=== PATIENT | male | born 1960 | race African-American/Black ===

== ENCOUNTER 2017-01-09 15:30 | Inpatient (IN) | payer OTHER ==
[2017-01-09 18:09] VITALS: BMI 25.7
--- NOTE | 2017-01-09 20:36 | HP ---
Admission ROS [facility] - [facility] Chief Complaint: SEEKING RETIREMENT REHAB SERVICES Allergies/Adverse Reactions: Allergies Allergy/AdvReac Type Severity Reaction Status Date / Time No Known Allergies Allergy Verified 01/09/17 20:04 History of Present Illness: 56 Y.O. MALE WITH EXTENSIVE H/ OF ALCOHOLISM AND CRACK COCAINE DEP SENT FROM [facility] FOR REHAB TXMENT. THIS IS CLIENTS FIRST VISIT HERE. REPORTS LONGEST CLEAN TIME 6.5 MONTHS. Exam Limitations: No Limitations - Ebola screening Have you traveled outside of the country in the last 21 days: No Have you had contact with anyone from an Ebola affected area: No Have you been sick,other than usual withdrawal symptoms: No Do you have a fever: No - Review of Systems Constitutional: Unintentional Wgt. Loss EENT: reports: No Symptoms Reported, Dental Problems (MISSING TEETH) Respiratory: reports: No Symptoms reported Cardiac: reports: No Symptoms Reported GI: reports: No Symptoms Reported : reports: No Symptoms Reported Musculoskeletal: reports: No Symptoms Reported Integumentary: reports: No Symptoms Reported Neuro: reports: No Symptoms reported Endocrine: reports: No Symptoms Reported Hematology: reports: No Symptoms Reported Psychiatric: reports: Anxious, Depressed Other Systems: Reviewed and Negative Patient History - Patient Medical History Hx Hypertension: Yes (ON MEDS) Hx Hypercholesterolemia: Yes (ON MEDS) Hx Pacemaker: No HX Cerebrovascular Accident: No Hx Seizures: No Hx Dementia: No Hx Diabetes: No Hx Gastrointestinal Disorders: No Hx Liver Disease: No Hx Genitourinary Disorders: No Hx Sexually Transmitted Disorders: No Hx Renal Disease (ESRD): No Hx Thyroid Disease: No Hx Human Immunodeficiency Virus (HIV): No Hx Hepatitis C: No Hx Depression: No Hx Suicide Attempt: No Hx Bipolar Disorder: No Hx Schizophrenia: No - Patient Surgical History Past Surgical History: No - PPD History Previous Implant?: Yes Documented Results: Negative w/proof Implanted On Prior [facility] Admission?: No Date: 09/01/16 ([facility] DOCUMENTATION PROVIDED) Results: 0MM PPD to be Administered?: No - Smoking Cessation Smoking history: Current every day smoker Have you smoked in the past 12 months: Yes Aproximately how many cigarettes per day: 10 Cigars Per Day: 0 Hx Chewing Tobacco Use: No Initiated information on smoking cessation: Yes 'Breaking Loose' booklet given: 01/09/17 - Substance & Tx. History Hx Alcohol Use: Yes Hx Substance Use: Yes Substance Use Type: Alcohol, Cocaine Hx Substance Use Treatment: Yes ([facility]) - Substances Abused BEER/LIQUOR Route: Oral Frequency: Daily Amount used: 5 CANS/ 1 PINT Age of first use: 18 Date of Last Use: 01/02/17 COCAINE Route: Smoking Frequency: Daily Amount used: 6 VIALS Age of first use: 36 Date of Last Use: 11/11/14 Family Disease History - Family Disease History Family Disease History: Other: Mother (ALCOHOL), Sister (ALCOHOL) Admission Physical Exam [facility] - Vital Signs Vital Signs: Vital Signs - 24 hr 01/09/17 18:08 Temperature 97.7 F Pulse Rate 59 L Respiratory 18 Rate Blood Pressure 135/74 - Physical General Appearance: Yes: No Apparent Distress HEENTM: Yes: EOMI, Normocephalic, Normal Voice, DENISSE, Pharynx Normal, Microcephalic Respiratory: Yes: Chest Non-Tender, Normal Breath Sounds, No Respiratory Distress, No Accessory Muscle Use Neck: Yes: No masses,lesions,Nodules, Supple, Trachea in good position Breast: Yes: Breast Exam Deferred Cardiology: Yes: Regular Rhythm, Regular Rate, S1, S2 Abdominal: Yes: Normal Bowel Sounds, Non Tender, Soft Genitourinary: Yes: Within Normal Limits Back: Yes: Normal Inspection Musculoskeletal: Yes: full range of Motion, Gait Steady Extremities: Yes: Normal Capillary Refill, Normal Range of Motion, Non-Tender Neurological: Yes: Alert, Other (POOR HISTORIAN) Integumentary: Yes: Normal Color, Dry, Warm Lymphatic: Yes: Within Normal Limits - Diagnostic (1) Alcohol dependence with uncomplicated withdrawal Current Visit: Yes Status: Chronic (2) Cocaine dependence, uncomplicated Current Visit: Yes Status: Chronic (3) Nicotine dependence Current Visit: Yes Status: Chronic Qualifiers: Nicotine product type: cigarettes Substance use status: uncomplicated Qualified Code(s): F17.210 - Nicotine dependence, cigarettes, uncomplicated (4) HTN (hypertension) Current Visit: Yes Status: Chronic Qualifiers: Hypertension type: essential hypertension Qualified Code(s): I10 - Essential (primary) hypertension (5) HLD (hyperlipidemia) Current Visit: Yes Status: Chronic Qualifiers: Hyperlipidemia type: unspecified Qualified Code(s): E78.5 - Hyperlipidemia, unspecified Cleared for Admission [facility] - Detox or Rehab Detox Regimen/Protocol: Not Applicable Claeared for Rehab Admission: Yes [facility] Breath Alcohol Content Breath Alcohol Content: 0 Urine Drug Screen - Results Drug Screen Negative: Yes
[2017-01-09] MEDS ORDERED: P-EPHED 60MG/TRIPROLIDI 2.5MG TABLET PO PRN (20:47)
[2017-01-09] MEDS ORDERED: ACETAMINOPHEN 325 MG TABLET (FP) PO PRN (20:47)
[2017-01-09] MEDS ORDERED: MAGNESIUM HYDROX 2400MG/30ML ORAL SUSPENSION 30 ML CUP PO PRN (20:47)
[2017-01-09] MEDS ORDERED: MAGNESIUM CITRATE 300 ML BOTTLE PO PRN (20:47)
[2017-01-09] MEDS ORDERED: LOPERAMIDE HCL 2 MG CAPSULE PO PRN (20:47)
[2017-01-09] MEDS ORDERED: MAG HYDROX/AL HYDROX/SIMETH 30 ML UNIT-DOSE CUP PO PRN (20:47)
[2017-01-09] MEDS ORDERED: MENTHOL/PHENOL 1 EACH UD MM PRN (20:47)
[2017-01-09] MEDS ORDERED: guaiFENesin/D-METHORPHAN HB 10 ML UNIT-DOSE CUPS PO PRN (20:47)
[2017-01-09] MEDS ORDERED: PATIENT'S OWN MEDICATION (NON-FORMULARY) (Simvastatin 40 MG) PO SCH (22:00)
[2017-01-09] MEDS: NICOTINE 14 MG/24 HOURS TOPICAL PATCH TD SCH (23:11)
[2017-01-09] MEDS: ATORVASTATIN CA 20 MG TABLET (FP) PO SCH (23:12)
[2017-01-09] MEDS: LISINOPRIL 10 MG TABLET (FP) PO SCH (23:12)
[2017-01-09] MEDS: THIAMINE HCL 100 MG TABLET (FP) PO SCH (23:12)
[2017-01-10] MEDS: PRENATAL VITAMINS W/ FOLIC ACID TABLET (FP) PO SCH (09:55)
[2017-01-10] MEDS: NICOTINE 14 MG/24 HOURS TOPICAL PATCH TD SCH (09:55)
[2017-01-10] MEDS: LISINOPRIL 10 MG TABLET (FP) PO SCH (09:55)
[2017-01-10 10:18] LABS: MCH 28.9 pg (25.7-33.7); MCHC 32.7 g/dl (32.0-35.9); MEAN CELL VOLUME 88.3 fl (80-96); MEAN PLT VOLUME 7.7 fl (7.5-11.1); PLATELET COUNT 220 K/MM3 (134-434); RDW 13.6 % (11.9-15.9); WHITE BLOOD COUNT 5.9 K/mm3 (4.0-10.0)
[2017-01-10 10:46] LABS: ALBUMIN 3.6 g/dl (3.4-5.0); ALK PHOS 102 U/L (45-117); ANION GAP 7 (8-16); BILIRUBIN,TOTAL 0.3 mg/dL (0.2-1.0); CALCIUM 8.8 mg/dL (8.5-10.1); CO2 29 mmol/L (21-32); GLUCOSE,RANDOM 67 mg/dL (74-106); SGOT/AST 18 U/L (15-37); SGPT/ALT 28 U/L (12-78); TOT PROT 6.8 g/dl (6.4-8.2)
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
[2017-01-10 10:57] LABS: HIV 1 & 2 AB NEGATIVE; HIV 1 AGp24 NEGATIVE
--- NOTE | 2017-01-10 12:34 | EKG ---
Test Reason : Blood Pressure : / mmHG Vent. Rate : 044 BPM Atrial Rate : 044 BPM P-R Int : 142 ms QRS Dur : 090 ms QT Int : 440 ms P-R-T Axes : 044 -17 031 degrees QTc Int : 376 ms MARKED SINUS BRADYCARDIA ANTERIOR INFARCT , AGE UNDETERMINED ABNORMAL ECG NO PREVIOUS ECGS AVAILABLE Confirmed by RACHEAL RANDOLPH MD ([id number]) on 01/10/2017 12:33:26 PM Referred By: Confirmed By:RACHEAL RANDOLPH MD
--- NOTE | 2017-01-10 12:36 | EKG ---
Test Reason : Blood Pressure : / mmHG Vent. Rate : 044 BPM Atrial Rate : 044 BPM P-R Int : 144 ms QRS Dur : 068 ms QT Int : 444 ms P-R-T Axes : 042 -32 024 degrees QTc Int : 379 ms POOR DATA QUALITY, INTERPRETATION MAY BE ADVERSELY AFFECTED MARKED SINUS BRADYCARDIA LEFT AXIS DEVIATION ABNORMAL ECG WHEN COMPARED WITH ECG OF 09-JAN-2017 20:58, CRITERIA FOR ANTERIOR INFARCT ARE NO LONGER PRESENT Confirmed by RACHEAL RANDOLPH MD ([id number]) on 01/10/2017 12:36:02 PM Referred By: Confirmed By:RACHEAL RANDOLPH MD
[2017-01-10] MEDS: CITALOPRAM HYDROBROMIDE 10 MG TABLET (FP) PO SCH (12:45)
[2017-01-10] MEDS: THIAMINE HCL 100 MG TABLET (FP) PO SCH (21:10)
[2017-01-10] MEDS: ATORVASTATIN CA 20 MG TABLET (FP) PO SCH (21:10)
[2017-01-10] MEDS: BENZTROPINE MESYLATE 1 MG TABLET (FP) PO SCH (21:10)
[2017-01-11] MEDS: CITALOPRAM HYDROBROMIDE 10 MG TABLET (FP) PO SCH (09:41)
[2017-01-11] MEDS: PRENATAL VITAMINS W/ FOLIC ACID TABLET (FP) PO SCH (09:41)
[2017-01-11] MEDS: LISINOPRIL 10 MG TABLET (FP) PO SCH (09:41)
[2017-01-11] MEDS: NICOTINE 14 MG/24 HOURS TOPICAL PATCH TD SCH (09:42)
[2017-01-11] MEDS ORDERED: PT OWN MED DRAWER 7, Y5N ONE (14:58)
[2017-01-11] MEDS: BENZTROPINE MESYLATE 1 MG TABLET (FP) PO SCH (21:09)
[2017-01-11] MEDS: THIAMINE HCL 100 MG TABLET (FP) PO SCH (21:09)
[2017-01-11] MEDS: ATORVASTATIN CA 20 MG TABLET (FP) PO SCH (21:10)
[2017-01-12] MEDS: CITALOPRAM HYDROBROMIDE 10 MG TABLET (FP) PO SCH (09:50)
[2017-01-12] MEDS: LISINOPRIL 10 MG TABLET (FP) PO SCH (09:50)
[2017-01-12] MEDS: NICOTINE 14 MG/24 HOURS TOPICAL PATCH TD SCH (09:50)
[2017-01-12] MEDS: PRENATAL VITAMINS W/ FOLIC ACID TABLET (FP) PO SCH (09:50)
[2017-01-12] MEDS: BENZTROPINE MESYLATE 1 MG TABLET (FP) PO SCH (21:19)
[2017-01-12] MEDS: THIAMINE HCL 100 MG TABLET (FP) PO SCH (21:19)
[2017-01-12] MEDS: ATORVASTATIN CA 20 MG TABLET (FP) PO SCH (21:19)
[2017-01-13] MEDS: LISINOPRIL 10 MG TABLET (FP) PO SCH (09:53)
[2017-01-13] MEDS: NICOTINE 14 MG/24 HOURS TOPICAL PATCH TD SCH (09:53)
[2017-01-13] MEDS: PRENATAL VITAMINS W/ FOLIC ACID TABLET (FP) PO SCH (09:53)
[2017-01-13] MEDS: CITALOPRAM HYDROBROMIDE 10 MG TABLET (FP) PO SCH (09:53)
[2017-01-13] MEDS: ATORVASTATIN CA 20 MG TABLET (FP) PO SCH (21:13)
[2017-01-13] MEDS: BENZTROPINE MESYLATE 1 MG TABLET (FP) PO SCH (21:13)
[2017-01-13] MEDS: THIAMINE HCL 100 MG TABLET (FP) PO SCH (21:14)
[2017-01-14] MEDS: NICOTINE 14 MG/24 HOURS TOPICAL PATCH TD SCH (09:35)
[2017-01-14] MEDS: PRENATAL VITAMINS W/ FOLIC ACID TABLET (FP) PO SCH (09:35)
[2017-01-14] MEDS: LISINOPRIL 10 MG TABLET (FP) PO SCH (09:35)
[2017-01-14] MEDS: CITALOPRAM HYDROBROMIDE 10 MG TABLET (FP) PO SCH (09:35)
[2017-01-14] MEDS: ATORVASTATIN CA 20 MG TABLET (FP) PO SCH (21:27)
[2017-01-14] MEDS: THIAMINE HCL 100 MG TABLET (FP) PO SCH (21:27)
[2017-01-14] MEDS: BENZTROPINE MESYLATE 1 MG TABLET (FP) PO SCH (21:28)
[2017-01-15] MEDS ORDERED: PT OWN MED DRAWER 7, Y5N ONE (08:37)
[2017-01-15] MEDS: NICOTINE 14 MG/24 HOURS TOPICAL PATCH TD SCH (09:52)
[2017-01-15] MEDS: PRENATAL VITAMINS W/ FOLIC ACID TABLET (FP) PO SCH (09:52)
[2017-01-15] MEDS: CITALOPRAM HYDROBROMIDE 10 MG TABLET (FP) PO SCH (09:52)
[2017-01-15] MEDS: LISINOPRIL 10 MG TABLET (FP) PO SCH (09:52)
[2017-01-15] MEDS: BENZTROPINE MESYLATE 1 MG TABLET (FP) PO SCH (21:22)
[2017-01-15] MEDS: THIAMINE HCL 100 MG TABLET (FP) PO SCH (21:22)
[2017-01-15] MEDS: ATORVASTATIN CA 20 MG TABLET (FP) PO SCH (21:22)
[2017-01-16] MEDS: CITALOPRAM HYDROBROMIDE 10 MG TABLET (FP) PO SCH (10:06)
[2017-01-16] MEDS: LISINOPRIL 10 MG TABLET (FP) PO SCH (10:06)
[2017-01-16] MEDS: NICOTINE 14 MG/24 HOURS TOPICAL PATCH TD SCH (10:06)
[2017-01-16] MEDS: PRENATAL VITAMINS W/ FOLIC ACID TABLET (FP) PO SCH (10:06)
[2017-01-16] MEDS: THIAMINE HCL 100 MG TABLET (FP) PO SCH (22:13)
[2017-01-16] MEDS: ATORVASTATIN CA 20 MG TABLET (FP) PO SCH (22:13)
[2017-01-16] MEDS: BENZTROPINE MESYLATE 1 MG TABLET (FP) PO SCH (22:13)
[2017-01-17] MEDS: PRENATAL VITAMINS W/ FOLIC ACID TABLET (FP) PO SCH (09:46)
[2017-01-17] MEDS: NICOTINE 14 MG/24 HOURS TOPICAL PATCH TD SCH (09:46)
[2017-01-17] MEDS: LISINOPRIL 10 MG TABLET (FP) PO SCH (09:46)
[2017-01-17] MEDS: CITALOPRAM HYDROBROMIDE 10 MG TABLET (FP) PO SCH (09:46)
[2017-01-17] MEDS: THIAMINE HCL 100 MG TABLET (FP) PO SCH (21:41)
[2017-01-17] MEDS: BENZTROPINE MESYLATE 1 MG TABLET (FP) PO SCH (21:41)
[2017-01-17] MEDS: ATORVASTATIN CA 20 MG TABLET (FP) PO SCH (21:41)
[2017-01-18] MEDS: LISINOPRIL 10 MG TABLET (FP) PO SCH (09:58)
[2017-01-18] MEDS: PRENATAL VITAMINS W/ FOLIC ACID TABLET (FP) PO SCH (09:58)
[2017-01-18] MEDS: CITALOPRAM HYDROBROMIDE 10 MG TABLET (FP) PO SCH (09:58)
[2017-01-18] MEDS: NICOTINE 14 MG/24 HOURS TOPICAL PATCH TD SCH (09:59)
[2017-01-18] MEDS: BENZTROPINE MESYLATE 1 MG TABLET (FP) PO SCH (21:29)
[2017-01-18] MEDS: ATORVASTATIN CA 20 MG TABLET (FP) PO SCH (21:29)
[2017-01-18] MEDS: THIAMINE HCL 100 MG TABLET (FP) PO SCH (21:29)
[2017-01-19] MEDS: NICOTINE 14 MG/24 HOURS TOPICAL PATCH TD SCH (09:47)
[2017-01-19] MEDS: PRENATAL VITAMINS W/ FOLIC ACID TABLET (FP) PO SCH (09:48)
[2017-01-19] MEDS: LISINOPRIL 10 MG TABLET (FP) PO SCH (09:48)
[2017-01-19] MEDS: CITALOPRAM HYDROBROMIDE 10 MG TABLET (FP) PO SCH (09:48)
[2017-01-19] MEDS: ATORVASTATIN CA 20 MG TABLET (FP) PO SCH (21:32)
[2017-01-19] MEDS: BENZTROPINE MESYLATE 1 MG TABLET (FP) PO SCH (21:32)
[2017-01-19] MEDS: THIAMINE HCL 100 MG TABLET (FP) PO SCH (21:32)
[2017-01-20] MEDS: PRENATAL VITAMINS W/ FOLIC ACID TABLET (FP) PO SCH (09:58)
[2017-01-20] MEDS: LISINOPRIL 10 MG TABLET (FP) PO SCH (09:58)
[2017-01-20] MEDS: CITALOPRAM HYDROBROMIDE 10 MG TABLET (FP) PO SCH (09:59)
[2017-01-20] MEDS: NICOTINE 14 MG/24 HOURS TOPICAL PATCH TD SCH (09:59)
[2017-01-20] MEDS: BENZTROPINE MESYLATE 1 MG TABLET (FP) PO SCH (21:18)
[2017-01-20] MEDS: THIAMINE HCL 100 MG TABLET (FP) PO SCH (21:18)
[2017-01-20] MEDS: ATORVASTATIN CA 20 MG TABLET (FP) PO SCH (21:18)
[2017-01-21] MEDS: NICOTINE 14 MG/24 HOURS TOPICAL PATCH TD SCH (09:52)
[2017-01-21] MEDS: PRENATAL VITAMINS W/ FOLIC ACID TABLET (FP) PO SCH (09:52)
[2017-01-21] MEDS: CITALOPRAM HYDROBROMIDE 10 MG TABLET (FP) PO SCH (09:52)
[2017-01-21] MEDS: LISINOPRIL 10 MG TABLET (FP) PO SCH (09:52)
[2017-01-21] MEDS: ATORVASTATIN CA 20 MG TABLET (FP) PO SCH (21:35)
[2017-01-21] MEDS: THIAMINE HCL 100 MG TABLET (FP) PO SCH (21:35)
[2017-01-21] MEDS: BENZTROPINE MESYLATE 1 MG TABLET (FP) PO SCH (21:36)
[2017-01-21] MEDS: diphenhydrAMINE HCL 50 MG CAPSULE PO PRN (21:36)
[2017-01-22] MEDS: CITALOPRAM HYDROBROMIDE 10 MG TABLET (FP) PO SCH (10:11)
[2017-01-22] MEDS: NICOTINE 14 MG/24 HOURS TOPICAL PATCH TD SCH (10:11)
[2017-01-22] MEDS: PRENATAL VITAMINS W/ FOLIC ACID TABLET (FP) PO SCH (10:11)
[2017-01-22] MEDS: LISINOPRIL 10 MG TABLET (FP) PO SCH (10:11)
[2017-01-22] MEDS: ATORVASTATIN CA 20 MG TABLET (FP) PO SCH (21:44)
[2017-01-22] MEDS: THIAMINE HCL 100 MG TABLET (FP) PO SCH (21:44)
[2017-01-22] MEDS: BENZTROPINE MESYLATE 1 MG TABLET (FP) PO SCH (21:44)
[2017-01-23] MEDS: CITALOPRAM HYDROBROMIDE 10 MG TABLET (FP) PO SCH (09:48)
[2017-01-23] MEDS: PRENATAL VITAMINS W/ FOLIC ACID TABLET (FP) PO SCH (09:48)
[2017-01-23] MEDS: NICOTINE 14 MG/24 HOURS TOPICAL PATCH TD SCH (09:49)
[2017-01-23] MEDS: LISINOPRIL 10 MG TABLET (FP) PO SCH (09:49)
[2017-01-23] MEDS: BENZTROPINE MESYLATE 1 MG TABLET (FP) PO SCH (22:00)
[2017-01-23] MEDS: ATORVASTATIN CA 20 MG TABLET (FP) PO SCH (22:00)
[2017-01-23] MEDS: THIAMINE HCL 100 MG TABLET (FP) PO SCH (22:00)
[2017-01-23] MEDS: diphenhydrAMINE HCL 50 MG CAPSULE PO PRN (22:00)
[2017-01-24] MEDS: CITALOPRAM HYDROBROMIDE 10 MG TABLET (FP) PO SCH (09:54)
[2017-01-24] MEDS: PRENATAL VITAMINS W/ FOLIC ACID TABLET (FP) PO SCH (09:54)
[2017-01-24] MEDS: LISINOPRIL 10 MG TABLET (FP) PO SCH (09:54)
[2017-01-24] MEDS: NICOTINE 14 MG/24 HOURS TOPICAL PATCH TD SCH (09:54)
[2017-01-24] MEDS: IBUPROFEN 400 MG TABLET (FP) PO PRN (19:55)
[2017-01-24] MEDS: BENZTROPINE MESYLATE 1 MG TABLET (FP) PO SCH (21:24)
[2017-01-24] MEDS: ATORVASTATIN CA 20 MG TABLET (FP) PO SCH (21:24)
[2017-01-24] MEDS: THIAMINE HCL 100 MG TABLET (FP) PO SCH (21:24)
[2017-01-24] MEDS: diphenhydrAMINE HCL 50 MG CAPSULE PO PRN (21:25)
[2017-01-25] MEDS: PRENATAL VITAMINS W/ FOLIC ACID TABLET (FP) PO SCH (09:51)
[2017-01-25] MEDS: NICOTINE 14 MG/24 HOURS TOPICAL PATCH TD SCH (09:52)
[2017-01-25] MEDS: LISINOPRIL 10 MG TABLET (FP) PO SCH (09:52)
[2017-01-25] MEDS: CITALOPRAM HYDROBROMIDE 10 MG TABLET (FP) PO SCH (09:52)
[2017-01-25] MEDS ORDERED: HALOPERIDOL DECANOATE 100 MG/ML IM ONE (10:00)
--- NOTE | 2017-01-25 10:42 | PN ---
Psychiatric Progress Note Vital Signs: Vital Signs Period Temp Pulse Resp BP Sys/Benoit Pulse Ox Last 24 Hr 97.8 F 64 18-18 157/74 Date of Session: 01/25/17 Chief Complaint:: " I want help to deal with my craving for alcohol" HPI: Patient addressing Alcohol and Cocaine Dependence comorbid woth Nicotine Dependence and Schizophrenia ROS: HTN, Hyperlipidemia Current Medications: Active Medications Generic Name Dose Route Start Last Admin Trade Name Freq PRN Reason Stop Dose Admin Acetaminophen 650 mg 01/09/17 20:47 01/24/17 21:24 Tylenol - PO 650 mg Q4H PRN Administration PAIN Al Hydroxide/Mg Hydroxide 30 ml 01/09/17 20:47 Mylanta Oral Suspension - PO Q6H PRN DYSPEPSIA Atorvastatin Calcium 20 mg 01/09/17 22:00 01/24/17 21:24 Lipitor - PO 20 mg HS CALEB Administration Benztropine Mesylate 2 mg 01/10/17 22:00 01/24/17 21:24 Cogentin - PO 2 mg HS CALEB Administration Citalopram Hydrobromide 10 mg 01/10/17 11:45 01/25/17 09:52 Celexa - PO 10 mg DAILY CALEB Administration Diphenhydramine HCl 50 mg 01/09/17 20:47 01/24/17 21:25 Benadryl - PO 50 mg HSMR1 PRN Administration INSOMNIA Eucalyptus/Menthol/Phenol/Sorbitol 1 each 01/09/17 20:47 Cepastat Lozenge - MM Q4H PRN SORE THROAT Guaifenesin 10 ml 01/09/17 20:47 Robitussin Dm - PO Q6H PRN COUGH Hydroxyzine Pamoate 50 mg 01/09/17 20:47 Vistaril - PO Q4H PRN AGITATION Ibuprofen 400 mg 01/09/17 20:47 01/24/17 19:55 Motrin - PO 400 mg Q6H PRN Administration SEVERE PAIN Lisinopril 10 mg 01/09/17 21:00 01/25/17 09:52 Prinivil PO 10 mg DAILY CALEB Administration Loperamide HCl 4 mg 01/09/17 20:47 Imodium - PO Q6H PRN DIARRHEA Magnesium Citrate 300 ml 01/09/17 20:47 Citroma - PO Q48H PRN CONSTIPATION Magnesium Hydroxide 30 ml 01/09/17 20:47 Milk Of Magnesia - PO DAILY PRN CONSTIPATION Nicotine 14 mg 01/09/17 21:00 01/25/17 09:52 Nicoderm Patch - TD Not Given DAILY CALEB Multivit/Folic Acid/Iron 1 tab 01/10/17 10:00 01/25/17 09:51 Vitamins ([facility]) - PO 1 tab DAILY CALEB Administration Pseudoephedrine/Triprolidine 1 combo 01/09/17 20:47 Actifed - PO TID PRN NASAL CONGESTION Thiamine HCl 100 mg 01/09/17 22:00 01/24/17 21:24 Vitamin B1 - PO 100 mg HS CALEB Administration Medication(s) Change(s): Start Naltrexone 50 mg po daily Current Side Effect: No Lab tests ordered: Yes Lab tests reviewed: Yes Provider note:: Patient reports experiencing a lot of craving for alcohol and requests to be helped with it. Use of opoid antagonist like Acamprosate and Naltrexone were discussed with patient. He is eligile for both as he has lab values for LFT's/kidney function are normal and he has not used any opoiate product. For easier compliance, he has decided to try Naltrexone . Adverse- effects of medication were discussed with patient and he was given an informative pamphlet as well Total face to face time:: 25 Mental Status Exam - Mental Status Exam Alert and Oriented to: Time, Place, Person Cognitive Function: Fair Patient Appearance: Well Groomed Mood: Hopeful, Euthymic Affect: Blunted Patient Behavior: Cooperative Speech Pattern: Clear Voice Loudness: Normal Thought Process: Intact Thought Disorder: Not Present Hallucinations: Denies Homicidal Ideation: Denies Insight/Judgement: Fair Sleep: Fair Appetite: Good Muscle strength/Tone: Normal Gait/Station: Normal Psychiatric Treatment Plan - Problem List (1) Alcohol dependence with uncomplicated withdrawal Current Visit: Yes (2) Cocaine dependence, uncomplicated Current Visit: Yes (3) Nicotine dependence Current Visit: Yes Qualifiers: Nicotine product type: cigarettes Substance use status: uncomplicated Qualified Code(s): F17.210 - Nicotine dependence, cigarettes, uncomplicated (4) Schizophrenia Current Visit: Yes (5) HLD (hyperlipidemia) Current Visit: Yes Qualifiers: Hyperlipidemia type: unspecified Qualified Code(s): E78.5 - Hyperlipidemia, unspecified (6) HTN (hypertension) Current Visit: Yes Qualifiers: Hypertension type: essential hypertension Qualified Code(s): I10 - Essential (primary) hypertension Initial treatment plan: 1) Start Naltrexone 50 mg po daily. 2) Monitor progress
[2017-01-25] MEDS: NALTREXONE HCL 50 MG TABLET PO SCH (12:00)
[2017-01-25] MEDS: BENZTROPINE MESYLATE 1 MG TABLET (FP) PO SCH (21:47)
[2017-01-25] MEDS: ATORVASTATIN CA 20 MG TABLET (FP) PO SCH (21:47)
[2017-01-25] MEDS: THIAMINE HCL 100 MG TABLET (FP) PO SCH (21:47)
[2017-01-26] MEDS ORDERED: PT OWN MED DRAWER 7, Y5N ONE (08:57)
[2017-01-26] MEDS: PRENATAL VITAMINS W/ FOLIC ACID TABLET (FP) PO SCH (09:50)
[2017-01-26] MEDS: CITALOPRAM HYDROBROMIDE 10 MG TABLET (FP) PO SCH (09:51)
[2017-01-26] MEDS: NALTREXONE HCL 50 MG TABLET PO SCH (09:51)
[2017-01-26] MEDS: NICOTINE 14 MG/24 HOURS TOPICAL PATCH TD SCH (09:51)
[2017-01-26] MEDS: LISINOPRIL 10 MG TABLET (FP) PO SCH (09:51)
[2017-01-26] MEDS: ATORVASTATIN CA 20 MG TABLET (FP) PO SCH (21:14)
[2017-01-26] MEDS: BENZTROPINE MESYLATE 1 MG TABLET (FP) PO SCH (21:14)
[2017-01-26] MEDS: THIAMINE HCL 100 MG TABLET (FP) PO SCH (21:15)
[2017-01-27] MEDS ORDERED: PT OWN MED DRAWER 7, Y5N ONE (08:45)
[2017-01-27] MEDS: NICOTINE 14 MG/24 HOURS TOPICAL PATCH TD SCH (10:03)
[2017-01-27] MEDS: LISINOPRIL 10 MG TABLET (FP) PO SCH (10:03)
[2017-01-27] MEDS: CITALOPRAM HYDROBROMIDE 10 MG TABLET (FP) PO SCH (10:03)
[2017-01-27] MEDS: NALTREXONE HCL 50 MG TABLET PO SCH (10:03)
[2017-01-27] MEDS: PRENATAL VITAMINS W/ FOLIC ACID TABLET (FP) PO SCH (10:03)
[2017-01-27] MEDS: THIAMINE HCL 100 MG TABLET (FP) PO SCH (21:37)
[2017-01-27] MEDS: BENZTROPINE MESYLATE 1 MG TABLET (FP) PO SCH (21:37)
[2017-01-27] MEDS: ATORVASTATIN CA 20 MG TABLET (FP) PO SCH (21:37)
[2017-01-27] MEDS: diphenhydrAMINE HCL 50 MG CAPSULE PO PRN (21:38)
[2017-01-28] MEDS: PRENATAL VITAMINS W/ FOLIC ACID TABLET (FP) PO SCH (10:21)
[2017-01-28] MEDS: NICOTINE 14 MG/24 HOURS TOPICAL PATCH TD SCH (10:22)
[2017-01-28] MEDS: CITALOPRAM HYDROBROMIDE 10 MG TABLET (FP) PO SCH (10:22)
[2017-01-28] MEDS: LISINOPRIL 10 MG TABLET (FP) PO SCH (10:23)
[2017-01-28] MEDS: NALTREXONE HCL 50 MG TABLET PO SCH (10:24)
[2017-01-28] MEDS ORDERED: PT OWN MED DRAWER 7, Y5N ONE (10:25)
[2017-01-28] MEDS: IBUPROFEN 400 MG TABLET (FP) PO PRN (19:05)
[2017-01-28] MEDS: THIAMINE HCL 100 MG TABLET (FP) PO SCH (21:43)
[2017-01-28] MEDS: BENZTROPINE MESYLATE 1 MG TABLET (FP) PO SCH (21:43)
[2017-01-28] MEDS: ATORVASTATIN CA 20 MG TABLET (FP) PO SCH (21:43)
[2017-01-29] MEDS: PRENATAL VITAMINS W/ FOLIC ACID TABLET (FP) PO SCH (09:53)
[2017-01-29] MEDS: CITALOPRAM HYDROBROMIDE 10 MG TABLET (FP) PO SCH (09:53)
[2017-01-29] MEDS: NALTREXONE HCL 50 MG TABLET PO SCH (09:53)
[2017-01-29] MEDS: NICOTINE 14 MG/24 HOURS TOPICAL PATCH TD SCH (09:53)
[2017-01-29] MEDS: LISINOPRIL 10 MG TABLET (FP) PO SCH (09:54)
--- NOTE | 2017-01-29 13:39 | PN ---
Psychiatric Progress Note Vital Signs: Vital Signs Period Temp Pulse Resp BP Sys/Benoti Pulse Ox Last 24 Hr 97.3 F 50-73 16-18 120-121/67-75 Date of Session: 01/29/17 HPI: Patient addressing Alcohol and Cocaine Dependence comorbid with Nicotine Dependence and Schizoaffective Disorder ROS: HTN, Hyperlipidemia Current Medications: Active Medications Generic Name Dose Route Start Last Admin Trade Name Freq PRN Reason Stop Dose Admin Acetaminophen 650 mg 01/09/17 20:47 01/24/17 21:24 Tylenol - PO 650 mg Q4H PRN Administration PAIN Al Hydroxide/Mg Hydroxide 30 ml 01/09/17 20:47 Mylanta Oral Suspension - PO Q6H PRN DYSPEPSIA Atorvastatin Calcium 20 mg 01/09/17 22:00 01/28/17 21:43 Lipitor - PO 20 mg HS CALEB Administration Benztropine Mesylate 2 mg 01/10/17 22:00 01/28/17 21:43 Cogentin - PO 2 mg HS CALEB Administration Citalopram Hydrobromide 10 mg 01/10/17 11:45 01/29/17 09:53 Celexa - PO 10 mg DAILY CALEB Administration Diphenhydramine HCl 50 mg 01/09/17 20:47 01/27/17 21:38 Benadryl - PO 50 mg HSMR1 PRN Administration INSOMNIA Eucalyptus/Menthol/Phenol/Sorbitol 1 each 01/09/17 20:47 Cepastat Lozenge - MM Q4H PRN SORE THROAT Guaifenesin 10 ml 01/09/17 20:47 Robitussin Dm - PO Q6H PRN COUGH Hydroxyzine Pamoate 50 mg 01/09/17 20:47 Vistaril - PO Q4H PRN AGITATION Ibuprofen 400 mg 01/09/17 20:47 01/28/17 19:05 Motrin - PO 400 mg Q6H PRN Administration SEVERE PAIN Lisinopril 10 mg 01/09/17 21:00 01/29/17 09:54 Prinivil PO 10 mg DAILY CALEB Administration Loperamide HCl 4 mg 01/09/17 20:47 Imodium - PO Q6H PRN DIARRHEA Magnesium Citrate 300 ml 01/09/17 20:47 Citroma - PO Q48H PRN CONSTIPATION Magnesium Hydroxide 30 ml 01/09/17 20:47 Milk Of Magnesia - PO DAILY PRN CONSTIPATION Naltrexone HCl 50 mg 01/25/17 10:45 01/29/17 09:53 Revia - PO 50 mg DAILY CALEB Administration Nicotine 14 mg 01/09/17 21:00 01/29/17 09:53 Nicoderm Patch - TD 14 mg DAILY CALEB Administration Multivit/Folic Acid/Iron 1 tab 01/10/17 10:00 01/29/17 09:53 Vitamins ([facility]) - PO 1 tab DAILY CALEB Administration Pseudoephedrine/Triprolidine 1 combo 01/09/17 20:47 Actifed - PO TID PRN NASAL CONGESTION Thiamine HCl 100 mg 01/09/17 22:00 01/28/17 21:43 Vitamin B1 - PO 100 mg HS CALEB Administration Medication(s) Change(s): Decrease Cogentin dosage to 1 mg po HS Current Side Effect: No (Dry mouth) Lab tests ordered: Yes Lab tests reviewed: Yes Provider note:: Requested to see patient because he has become isolative, less visible on the unit, spending too much time in bed. He has been in bed since this morning and has not come out for lunch. He was asked to come to the office for a talk.He originally told sign writer letterer or painter that he does not feel right and has been feeling nauseous with very dry mouth. During the interview, he kept on saying:" I should not have done that." when confronted about what he did, he said that before he came here he smoked something he does not what it was. He was asked if it was K2 and he said no it was not. Upon further questioning, he reported that he has been hearing voices off & on since he has been here and most of the times, he cannot make out what they are saying. He denies that they are telling him to hurt himself or others. He also denies feeling suicidal, homicidal. Since he appeared unkempt, he was questioned about his hygiene and he told sign writer letterer or painter that he has not taken shower in 2 days. He was asked to make an effort to do certain things like taking shower every day and be more visible on the unit by watching TV or do anything else he likes to do. He was warned against isolating himself and he was told that he would get sicker by doing that. Patient just received his monthly injection of Haldol Decanoate 150 mg IM on . Before he received that injection, he was functioning much better. He was more visible on the unit, spending time in the dining area with other patients at breakfast, lunch and dinner time. He was seen frequently walking in the hallway etc. Total face to face time:: 30 Mental Status Exam - Mental Status Exam Alert and Oriented to: Time, Place, Person Cognitive Function: Fair Patient Appearance: Unkempt, Disheveled Mood: Nervous, Anxious Affect: Blunted, Constricted Patient Behavior: Guarded, Cooperative Speech Pattern: Clear Voice Loudness: Normal Thought Process: Intact Hallucinations: Auditory (Claims to be hearing voices off & on but cannot make what they are saying) Suicidal Ideation: Denies Homicidal Ideation: Denies Insight/Judgement: Fair Sleep: Fair Appetite: Fair Muscle strength/Tone: Normal Gait/Station: Normal Psychiatric Treatment Plan - Problem List (1) Alcohol dependence with uncomplicated withdrawal Current Visit: Yes (2) Cocaine dependence, uncomplicated Current Visit: Yes (3) Nicotine dependence Current Visit: Yes Qualifiers: Nicotine product type: cigarettes Substance use status: uncomplicated Qualified Code(s): F17.210 - Nicotine dependence, cigarettes, uncomplicated (4) Schizophrenia Current Visit: Yes (5) HLD (hyperlipidemia) Current Visit: Yes Qualifiers: Hyperlipidemia type: unspecified Qualified Code(s): E78.5 - Hyperlipidemia, unspecified (6) HTN (hypertension) Current Visit: Yes Qualifiers: Hypertension type: essential hypertension Qualified Code(s): I10 - Essential (primary) hypertension Initial treatment plan: 1) Discontinue Cogentin 2 mg po HS. 2) Start Cogentin 1 mg po HS and Haldol 5 mg po BID. 3) Monitor progress
[2017-01-29] MEDS ORDERED: HALOPERIDOL 5 MG TABLET (FP) PO PRN (13:45)
[2017-01-29] MEDS: HALOPERIDOL 5 MG TABLET (FP) PO SCH ×2 (14:25→21:46)
[2017-01-29] MEDS: hydrOXYzine PAMOATE 50 MG CAPSULE (FP) PO PRN (17:25)
[2017-01-29] MEDS: THIAMINE HCL 100 MG TABLET (FP) PO SCH (21:45)
[2017-01-29] MEDS: ATORVASTATIN CA 20 MG TABLET (FP) PO SCH (21:46)
[2017-01-29] MEDS: BENZTROPINE MESYLATE 1 MG TABLET (FP) PO SCH (21:46)
[2017-01-30] MEDS ORDERED: PT OWN MED DRAWER 7, Y5N ONE (08:55)
[2017-01-30] MEDS: HALOPERIDOL 5 MG TABLET (FP) PO SCH ×2 (09:56→21:29)
[2017-01-30] MEDS: LISINOPRIL 10 MG TABLET (FP) PO SCH (09:56)
[2017-01-30] MEDS: NALTREXONE HCL 50 MG TABLET PO SCH (09:56)
[2017-01-30] MEDS: NICOTINE 14 MG/24 HOURS TOPICAL PATCH TD SCH (09:56)
[2017-01-30] MEDS: CITALOPRAM HYDROBROMIDE 10 MG TABLET (FP) PO SCH (09:56)
[2017-01-30] MEDS: PRENATAL VITAMINS W/ FOLIC ACID TABLET (FP) PO SCH (09:56)
[2017-01-30] MEDS: hydrOXYzine PAMOATE 50 MG CAPSULE (FP) PO PRN (17:02)
[2017-01-30] MEDS: THIAMINE HCL 100 MG TABLET (FP) PO SCH (21:28)
[2017-01-30] MEDS: BENZTROPINE MESYLATE 1 MG TABLET (FP) PO SCH (21:28)
[2017-01-30] MEDS: ATORVASTATIN CA 20 MG TABLET (FP) PO SCH (21:29)
[2017-01-31] MEDS ORDERED: PT OWN MED DRAWER 7, Y5N ONE (08:42)
[2017-01-31] MEDS: LISINOPRIL 10 MG TABLET (FP) PO SCH (09:46)
[2017-01-31] MEDS: CITALOPRAM HYDROBROMIDE 10 MG TABLET (FP) PO SCH (09:46)
[2017-01-31] MEDS: HALOPERIDOL 5 MG TABLET (FP) PO SCH ×2 (09:46→21:51)
[2017-01-31] MEDS: NALTREXONE HCL 50 MG TABLET PO SCH (09:46)
[2017-01-31] MEDS: PRENATAL VITAMINS W/ FOLIC ACID TABLET (FP) PO SCH (09:46)
[2017-01-31] MEDS: NICOTINE 14 MG/24 HOURS TOPICAL PATCH TD SCH (09:48)
--- NOTE | 2017-01-31 10:39 | PN ---
Psychiatric Progress Note Vital Signs: Vital Signs Period Temp Pulse Resp BP Sys/Benoit Pulse Ox Last 24 Hr 97.4 F 70-87 16-18 120-122/56-80 Date of Session: 01/31/17 Chief Complaint:: Psychiatrist Discharge Note HPI: Patient addressing Alcohol and Cocaine Dependence comorbid with Nicotine Dependence and Schizophrenia ROS: HTN, Hyperlipidemia were medically managed Current Medications: Active Medications Generic Name Dose Route Start Last Admin Trade Name Freq PRN Reason Stop Dose Admin Acetaminophen 650 mg 01/09/17 20:47 01/24/17 21:24 Tylenol - PO 650 mg Q4H PRN Administration PAIN Al Hydroxide/Mg Hydroxide 30 ml 01/09/17 20:47 Mylanta Oral Suspension - PO Q6H PRN DYSPEPSIA Atorvastatin Calcium 20 mg 01/09/17 22:00 01/30/17 21:29 Lipitor - PO 20 mg HS CALEB Administration Benztropine Mesylate 1 mg 01/29/17 22:00 01/30/17 21:28 Cogentin - PO 1 mg HS CALEB Administration Citalopram Hydrobromide 10 mg 01/10/17 11:45 01/31/17 09:46 Celexa - PO 10 mg DAILY CALEB Administration Diphenhydramine HCl 50 mg 01/09/17 20:47 01/27/17 21:38 Benadryl - PO 50 mg HSMR1 PRN Administration INSOMNIA Eucalyptus/Menthol/Phenol/Sorbitol 1 each 01/09/17 20:47 Cepastat Lozenge - MM Q4H PRN SORE THROAT Guaifenesin 10 ml 01/09/17 20:47 Robitussin Dm - PO Q6H PRN COUGH Haloperidol 5 mg 01/29/17 14:00 01/31/17 09:46 Haldol - PO 5 mg BID CALEB Administration Hydroxyzine Pamoate 50 mg 01/09/17 20:47 01/30/17 17:02 Vistaril - PO 50 mg Q4H PRN Administration AGITATION Ibuprofen 400 mg 01/09/17 20:47 01/28/17 19:05 Motrin - PO 400 mg Q6H PRN Administration SEVERE PAIN Lisinopril 10 mg 01/09/17 21:00 01/31/17 09:46 Prinivil PO 10 mg DAILY CALEB Administration Loperamide HCl 4 mg 01/09/17 20:47 Imodium - PO Q6H PRN DIARRHEA Magnesium Citrate 300 ml 01/09/17 20:47 Citroma - PO Q48H PRN CONSTIPATION Magnesium Hydroxide 30 ml 01/09/17 20:47 Milk Of Magnesia - PO DAILY PRN CONSTIPATION Naltrexone HCl 50 mg 01/25/17 10:45 01/31/17 09:46 Revia - PO 50 mg DAILY CALEB Administration Nicotine 14 mg 01/09/17 21:00 01/31/17 09:48 Nicoderm Patch - TD 14 mg DAILY CALEB Administration Multivit/Folic Acid/Iron 1 tab 01/10/17 10:00 01/31/17 09:46 Vitamins (Sjr) - PO 1 tab DAILY CALEB Administration Pseudoephedrine/Triprolidine 1 combo 01/09/17 20:47 Actifed - PO TID PRN NASAL CONGESTION Thiamine HCl 100 mg 01/09/17 22:00 01/30/17 21:28 Vitamin B1 - PO 100 mg HS CALEB Administration Current Side Effect: No Lab tests ordered: Yes Lab tests reviewed: Yes Provider note:: Patient will complete this program on 02/01/17. He has met his treatment goals and will continue to address his issues in residential treatment at [facility]. Told senior underwriter that from his participation in this program, he has learned the importance of adherence to his psychotropic medications and of making meeting meetings in order to prevent relapse. He responded well to Celexa 10 mg po lorenzo, Haldol Decanoate 150 mg IM given last on 01/25/17 and due next on 02/22/17, Haldol 5 mg po BID, Cogentin 1 mg po HS and Naltrexone 50 mg po daily, Script for 30 days supply of these medications except Haldol Decanoate will be electronically transmitted to [facility] at [address] [place] [address]. He is stable for discharge on 02/01/17 Total face to face time:: 35 Mental Status Exam - Mental Status Exam Alert and Oriented to: Time, Place, Person Cognitive Function: Fair Patient Appearance: Well Groomed Mood: Hopeful, Euthymic Affect: Blunted Patient Behavior: Cooperative Speech Pattern: Clear Voice Loudness: Normal Thought Process: Intact Thought Disorder: Not Present Hallucinations: Denies Suicidal Ideation: Denies Homicidal Ideation: Denies Insight/Judgement: Fair Sleep: Fair Appetite: Good Muscle strength/Tone: Normal Gait/Station: Normal Psychiatric Treatment Plan - Problem List (1) Alcohol dependence with uncomplicated withdrawal Current Visit: Yes (2) Cocaine dependence, uncomplicated Current Visit: Yes (3) Nicotine dependence Current Visit: Yes Qualifiers: Nicotine product type: cigarettes Substance use status: uncomplicated Qualified Code(s): F17.210 - Nicotine dependence, cigarettes, uncomplicated (4) Schizophrenia Current Visit: Yes (5) HLD (hyperlipidemia) Current Visit: Yes Qualifiers: Hyperlipidemia type: unspecified Qualified Code(s): E78.5 - Hyperlipidemia, unspecified (6) HTN (hypertension) Current Visit: Yes Qualifiers: Hypertension type: essential hypertension Qualified Code(s): I10 - Essential (primary) hypertension Initial treatment plan: Patient chato be discharged tomorrow and referred to [facility] for intermediate residential treatment
[2017-01-31] MEDS: BENZTROPINE MESYLATE 1 MG TABLET (FP) PO SCH (21:51)
[2017-01-31] MEDS: THIAMINE HCL 100 MG TABLET (FP) PO SCH (21:51)
[2017-01-31] MEDS: ATORVASTATIN CA 20 MG TABLET (FP) PO SCH (21:52)
[2017-02-01 06:38] VITALS: BP 129/68; PULSE 55; TEMP 97.7
[2017-02-01] MEDS ORDERED: PT OWN MED DRAWER 7, Y5N ONE (08:28)
[2017-02-01] MEDS: CITALOPRAM HYDROBROMIDE 10 MG TABLET (FP) PO SCH (09:33)
[2017-02-01] MEDS: PRENATAL VITAMINS W/ FOLIC ACID TABLET (FP) PO SCH (09:33)
[2017-02-01] MEDS: NICOTINE 14 MG/24 HOURS TOPICAL PATCH TD SCH (09:34)
[2017-02-01] MEDS: HALOPERIDOL 5 MG TABLET (FP) PO SCH (09:34)
[2017-02-01] MEDS: LISINOPRIL 10 MG TABLET (FP) PO SCH (09:34)
[2017-02-01] MEDS: NALTREXONE HCL 50 MG TABLET PO SCH (09:34)
== END 2017-02-01 10:00 | disposition home or self-care (01) | DRG 772 ==
LOC: YASAS 15:30 → Y3W 19:22
PROVIDERS: ADMIT Psychiatry & Neurology Psychiatry; ATTEND Psychiatry & Neurology Psychiatry
PROC: HZ42ZZZ Group Counseling for Substance Abuse Treatment, Cognitive-Behavioral (ICD-10-PCS; principal; 2017-02-01)
DX: F10.230 Alcohol dependence with withdrawal, uncomplicated (principal); F14.20 Cocaine dependence, uncomplicated; F17.210 Nicotine dependence, cigarettes, uncomplicated; F20.9 Schizophrenia, unspecified; I10 Essential (primary) hypertension; E78.5 Hyperlipidemia, unspecified
CPT/HCPCS: 36415; 80053; 85027; 86593; 87389; 93005; 93010